=== PATIENT | female | born 1960 | race Caucasian/White ===

== ENCOUNTER 2018-01-29 15:23 | Emergency (ER) | payer OTHER ==
[~2018-01-29] VITALS: Ht 157.5 cm; Wt 49.9 kg
[~2018-01-29 15:23] MED LIST: FLEXERIL10 MG PO; MOTRIN600 MG PO
[2018-01-29] MEDS ORDERED: GABAPENTIN100 MG PO (15:54)
[2018-01-29] MEDS ORDERED: ZOCOR20 MG PO (15:54)
[2018-01-29] MEDS ORDERED: FOLIC ACID1 MG PO (15:55)
[2018-01-29] MEDS ORDERED: PRILOSEC10 MG PO (15:55)
[2018-01-29] MEDS ORDERED: PREDNISONE2.5 MG PO (15:55)
== END 2018-01-29 20:40 | disposition home or self-care (01) ==
LOC: ER 15:23
DX: S00.271A Other superficial bite of right eyelid and periocular area, initial encounter (principal); W54.0XXA Bitten by dog, initial encounter; Y93.89 Activity, other specified; Y92.89 Other specified places as the place of occurrence of the external cause; Y99.8 Other external cause status

== ENCOUNTER 2019-02-06 05:35 | Day surgery (SDC) | payer OTHER ==
[~2019-02-06 05:35] MED LIST changes: +FOLIC ACID1 MG PO; +GABAPENTIN100 MG PO; +PREDNISONE2.5 MG PO; +PRILOSEC10 MG PO; +ZOCOR20 MG PO
[2019-02-06] MEDS ORDERED: ACETAMINOPHEN500 M2 PO (10:35)
== END 2019-02-06 13:50 | disposition home or self-care (01) ==
LOC: CIR.AMB 05:35
DX: S01.322A Laceration with foreign body of left ear, initial encounter (principal); S01.321A Laceration with foreign body of right ear, initial encounter

== ENCOUNTER 2023-05-03 13:42 | Outpatient (CLI) | payer OTHER ==
[~2023-05-03 13:42] MED LIST changes: +ACETAMINOPHEN500 M2 PO
== END 2023-05-03 13:46 | disposition home or self-care (01) ==
LOC: RAD 13:42
DX: M50.00 Cervical disc disorder with myelopathy, unspecified cervical region (principal)